=== PATIENT | female | born 1975 | race Caucasian/White ===

== ENCOUNTER 2021-10-07 18:56 | Inpatient (IN) | payer OTHER ==
[2021-10-07] MEDS ORDERED: LABETALOL 5 MG/ML VIAL MDV IVP PRN ×3 (19:39)
[2021-10-07] MEDS ORDERED: hydrALAZINE HCL 20 MG/ML 1 ML VIAL IVP PRN (19:39)
[2021-10-07] MEDS ORDERED: LACTATED RINGERS 1,000 ML IV SCH (19:40)
[2021-10-07 20:11] LABS: Basophils % (A) 0 %; Eosinophils # (A) 0.1 k/uL (0-0.7); Eosinophils % (A) 0 %; HCT 36.7 % (34.0-46.0); HGB 11.8 gm/dL (11.4-16.0); Hypochromasia Marked; Lymphocytes # (A) 2.4 k/uL (1.0-4.8); Lymphocytes % (A) 23 %; MCH 26.2 pg (25.0-35.0); MCHC 32.1 g/dL (31.0-37.0); MCV 81.5 fL (80.0-100.0); Mean Platelet Volume 13.8; Monocytes # (A) 0.3 k/uL (0-1.0); Monocytes % (A) 3 %; Neutrophils # (A) 7.7 k/uL (1.3-7.7); Neutrophils % (A) 72 %; Platelet Count 230 k/uL (150-450); Poikilocytosis Slight; RDW 14.2 % (11.5-15.5); WBC 10.7 k/uL (3.8-10.6)
[2021-10-07 20:24] LABS: Amphetamine Screen,Urine Not Detected (NotDetected); Barbiturate Screen,Urine Not Detected (NotDetected); Benzodiazepines Screen,Urine Not Detected (NotDetected); Cocaine Screen,Urine Not Detected (NotDetected); Methadone Screen, Urine Not Detected (NotDetected); Opiate Screen,Urine Not Detected (NotDetected); Oxycodone Screen, Urine Not Detected (NotDetected); Phencyclidine Screen,Urine Not Detected (NotDetected); Tricyclic Antidepressant,Urine Not Detected (NotDetected); Urn Cannabinoid Scrn Not Detected (NotDetected)
[2021-10-07 20:26] LABS: Amorphous Sediment,Urine Rare /hpf; Appearance,Urine Cloudy (Clear); Bacteria,Urine Rare /hpf; Bilirubin,Urine Negative (Negative); Blood,Urine Negative (Negative); Color,Urine Yellow; Glucose,Urine (UA) Negative (Negative); Hyaline Casts,Urine 14 /lpf (0-2); Ketones,Urine Trace (Negative); Leukocyte Esterase,Urine Moderate (Negative); Mucus,Urine Many /hpf; Nitrite,Urine Negative (Negative); Protein,Urine 1+ (Negative); RBC,Urine 2 /hpf (0-5); Squamous Epithelial Cell,Urine 10 /hpf (0-4); WBC,Urine 11 /hpf (0-5)
[2021-10-07 20:30] LABS: INR 0.9 (<1.2); Partial Thromboplastin Time 23.7 sec (22.0-30.0); Prothrombin Time 9.7 sec (9.0-12.0)
[2021-10-07 20:33] LABS: ALT 14 U/L (4-34); AST 19 U/L (14-36); African American GFR (CKD) >90 (>60 ml/min/1.73 sqM); Blood Urea Nitrogen 12 mg/dL (7-17); LDH 630 U/L (313-618); Non-African American GFR(CKD) >90 (>60 ml/min/1.73 sqM); Uric Acid 4.9 mg/dL (3.7-7.4)
[2021-10-07 20:34] LABS: Creatinine,Urine Random 320.4 mg/dL
[2021-10-07] MEDS ORDERED: CITRIC ACID-SODIUM CITRATE 15 ML CUP PO ONE (20:46)
[2021-10-07] MEDS ORDERED: diphenhydrAMINE 50 MG CAP PO PRN (21:42)
[2021-10-07] MEDS ORDERED: NALOXONE 0.4 MG/ML 1 ML VIAL IV PRN (21:42)
[2021-10-07] MEDS ORDERED: SIMETHICONE 80 MG CHEWABLE PO PRN (21:42)
[2021-10-07] MEDS ORDERED: diphenhydrAMINE 50 MG/ML 1 ML VIAL IVP PRN ×2 (21:42)
[2021-10-07] MEDS ORDERED: ZOLPIDEM 5 MG TAB PO PRN (21:42)
[2021-10-07] MEDS ORDERED: diphenhydrAMINE 25 MG CAP PO PRN (21:42)
[2021-10-07] MEDS ORDERED: ONDANSETRON 4 MG/2 ML VIAL IVP PRN (21:42)
[2021-10-07] MEDS ORDERED: OXYTOCIN 30 UNITS/500 ML NS 30 UNIT in SALINE 1 500ML.BAG IV SCH (21:45)
--- NOTE | 2021-10-07 21:48 | P.HPOB ---
History of Present Illness H&P Date: 10/07/21 Chief Complaint: pre-eclampsia 45 year old presents at 39 weeks and 5 days by last menstrual period with elevated blood pressures. Patient has had no care and decided to come to the [facility] because she knew she shouldn't go into labor considering she had a previous section. According to an Natalya She has on her phone she's 39 weeks and 5 days though she has not had any care including ultrasounds her blood work. Her exam does Antione out to 37-40 weeks. heart tones 135 with moderate variability and reactive. She is showing some contractions on the monitor but not feeling any. Her blood pressures here are very high up to 200s over 100s. Started labetalol protocol which did help with her blood pressures. She denies headache or vision changes or nausea. Review of Systems All systems: negative Constitutional: Denies chills, Denies fever Eyes: denies blurred vision, denies pain Ears, nose, mouth and throat: Denies headache, Denies sore throat Cardiovascular: Denies chest pain, Denies shortness of breath Respiratory: Denies cough Gastrointestinal: Denies abdominal pain, Denies diarrhea, Denies nausea, Denies vomiting Genitourinary: Denies dysuria, Denies hematuria Musculoskeletal: Denies myalgias Integumentary: Denies pruritus, Denies rash Neurological: Denies numbness, Denies weakness Psychiatric: Denies anxiety, Denies depression Endocrine: Denies fatigue, Denies weight change Past Medical History Additional Past Medical History / Comment(s): Obstetric history: One was a section 10 years ago, she pushed the baby up for adoption. She's had 2 miscarriages. Another she got to 6-7 months but then had a vaginal delivery of this baby. She says she did not get care with this because she was having insurance issues and then by the time she did get insurance was too late for any office to accept her for care. History of Any Multi-Drug Resistant Organisms: None Reported Smoking Status: Never smoker Medications and Allergies Home Medications Medication Instructions Recorded Confirmed Type Pnv No.95/Ferrous Fum/Folic AC 1 tab PO DAILY 10/07/21 10/07/21 History [ Multivitamin Tablet] Allergies Allergy/AdvReac Type Severity Reaction Status Date / Time codeine AdvReac Nausea & Verified 10/07/21 19:21 Vomiting Exam Osteopathic Statement: *. No significant issues noted on an osteopathic structural exam other than those noted in the History and Physical/Consult. Intake and Output 10/07/21 10/07/21 10/07/21 06:59 14:59 22:59 Other: Weight 111.629 kg Heart: Regular rate and rhythm Lungs: Clear to auscultation bilaterally Abdomen: Soft, nontender, gravid 37-40 weeks Extremities: Negative Homans sign, 2+ a 4 DTR Results Result Diagrams: 10/07/21 19:35 10/07/21 19:35 Abnormal Lab Results - Last 24 Hours (Table) 10/07/21 10/07/21 10/07/21 Range/Units 19:35 19:35 19:35 WBC 10.7 H (3.8-10.6) k/uL Fibrinogen 519 H (200-500) mg/dL Lactate Dehydrogenase (313-618) U/L Urine Appearance Cloudy H (Clear) Urine Protein 1+ H (Negative) Urine Ketones Trace H (Negative) Ur Leukocyte Esterase Moderate H (Negative) Urine WBC 11 H (0-5) /hpf Ur Squamous Epith Cells 10 H (0-4) /hpf Amorphous Sediment Rare H (None) /hpf Urine Bacteria Rare H (None) /hpf Hyaline Casts 14 H (0-2) /lpf Urine Mucus Many H (None) /hpf 10/07/21 Range/Units 19:35 WBC (3.8-10.6) k/uL Fibrinogen (200-500) mg/dL Lactate Dehydrogenase 630 H (313-618) U/L Urine Appearance (Clear) Urine Protein (Negative) Urine Ketones (Negative) Ur Leukocyte Esterase (Negative) Urine WBC (0-5) /hpf Ur Squamous Epith Cells (0-4) /hpf Amorphous Sediment (None) /hpf Urine Bacteria (None) /hpf Hyaline Casts (0-2) /lpf Urine Mucus (None) /hpf Assessment and Plan (1) Preeclampsia Current Visit: Yes Status: Acute Code(s): O14.90 - UNSPECIFIED PRE- ECLAMPSIA, UNSPECIFIED TRIMESTER SNOMED Code(s): 973598716 (2) No care in current Current Visit: Yes Status: Acute Code(s): O09.30 - SUPRVSN OF PREG W INSUFFICIENT ANTENAT CARE, UNSP TRIMESTER SNOMED Code(s): 328964274 (3) 39 weeks gestation of Current Visit: Yes Status: Acute Code(s): Z3A.39 - 39 WEEKS GESTATION OF SNOMED Code(s): 31075488 (4) Previous section Current Visit: Yes Status: Acute Code(s): Z98.891 - HISTORY OF UTERINE SCAR FROM PREVIOUS SURGERY SNOMED Code(s): 514553713 Plan: 1. Repeat low transverse
--- NOTE | 2021-10-07 21:51 | P.OP ---
Date of Procedure: 10/07/21 Preoperative Diagnosis: 1. at 39 weeks 5 days 2. previous 3. pre-eclampsia 4. no care with current Postoperative Diagnosis: 1. at 39 weeks 5 days 2. previous 3. pre-eclampsia 4. no care with current Procedure(s) Performed: repeat low transverse Anesthesia: spinal Surgeon: Joyce Carter Cnc Field Service Engineer #1: Maria Luz Adames Estimated Blood Loss (ml): 200 IV fluids (ml): 500 Urine output (ml): 50 Pathology: other (placenta) Condition: stable Disposition: floor Operative Findings: viable male. Apgars 8,8, weight pending Description of Procedure: Patient was taken to the operating room where spinal anesthesia was found be adequate. She was prepped and draped in normal sterile fashion in dorsal supine position with a leftward tilt. Pfannenstiel skin incision was made the scalpel and carried through to the underlying layer of fascia with the scalpel. Fascia was incised in midline and carried bilaterally with the Tabares scissors. The superior aspect of the fascial incision was grasped with [place] clamps elevated and the underlying rectus muscles dissected off with the Tabares's. Attention was then turned to inferior aspect of same incision which in a similar fashion was grasped tented up and the underlying rectus muscles dissected off with the Tabares's. The rectus muscles were the midline and the peritoneum was identified tented up and entered sharply with the scalpel. The incision was extended superiorly and inferiorly with good visualization of the bladder. The bladder blade was inserted and the vesicouterine peritoneum was incised the Metzenbaums then carried bilaterally and bladder flap created digitally. A low transverse incision was then made on the uterus with the scalpel. This was carried bilaterally and digital manner. 's head delivered atraumatically, nose and mouth bulb suctioned, cord clamped and cut, infant handed off to waiting nurses. Apgars 8,8, weight pending. Placenta delivered manually, intact with three-vessel cord. The uterus is exteriorized and cleared of all clots and debris. The uterine incision was closed with 0 Vicryl in a running locked fashion. Second layer of the same sutures used in imbricating fashion to obtain excellent hemostasis. Both ovaries and tubes appeared normal. The uterus was placed back into the abdomen. The peritoneum was reapproximated using 2-0 Vicryl in a running fashion. The fascia was reapproximated using 0 Vicryl in a running fashion. The subcutaneous tissues closed with 3-0 Vicryl running fashion. The skin was closed maria de jesus. Patient tolerated the procedure well, sponge and instrument counts were correct times 2 and she was taken to the recovery room in stable condition.
[2021-10-08] MEDS: METOCLOPRAMIDE 5 MG/ML 2 ML VIAL IVP PRN ×2 (01:11→07:39)
[2021-10-08] MEDS: LACTATED RINGERS 1,000 ML IV SCH ×5 (01:25→11:20)
[2021-10-08] MEDS: ACETAMINOPHEN TAB 500 MG TAB PO SCH ×3 (02:11→18:20)
[2021-10-08] MEDS: KETOROLAC 15 MG/ML 1 ML VIAL IVP SCH ×3 (05:00→22:17)
[2021-10-08] MEDS: SENNOSIDES-DOCUSATE SODIUM 1 EACH TAB PO SCH ×2 (07:39→20:32)
[2021-10-08 08:58] LABS: Basophils % (A) 0 %; Eosinophils % (A) 0 %; HCT 34.3 % (34.0-46.0); HGB 10.8 gm/dL (11.4-16.0); Hypochromasia Marked; Lymphocytes # (A) 1.9 k/uL (1.0-4.8); Lymphocytes % (A) 13 %; MCH 25.9 pg (25.0-35.0); MCHC 31.5 g/dL (31.0-37.0); MCV 82.4 fL (80.0-100.0); Mean Platelet Volume 13.7; Monocytes # (A) 0.4 k/uL (0-1.0); Monocytes % (A) 3 %; Neutrophils # (A) 11.9 k/uL (1.3-7.7); Neutrophils % (A) 83 %; Platelet Count 183 k/uL (150-450); RBC 4.17 m/uL (3.80-5.40); RDW 14.2 % (11.5-15.5); WBC 14.3 k/uL (3.8-10.6)
[2021-10-08 09:57] LABS: Hepatitis B Surface Antigen Nonreactive (Nonreactive)
[2021-10-08 10:19] LABS: Anisocytosis (M) Present; Poikilocytosis (M) Present
--- NOTE | 2021-10-08 11:22 | P.PNOBGPC ---
Subjective - Subjective Principal diagnosis: Status post repeat low transverse postop day #1 Interval history: Patient seen and examined. Denies nausea, vomiting, chest pain, shortness of breath or calf pain. She was very nauseous after the surgery last night and did have some nausea and vomiting throughout the night. Her urine output is pretty low only 50 out in the last 4 hours Minutes and is quite cloudy. We'll give 500 mL bolus of IV fluids since her blood pressures have been stable and she denies any shortness of breath. Patient reports: Reports appetite normal, Reports pain well controlled, Reports ambulating normally Objective - Vital Signs Latest vital signs: Vital Signs Temp Pulse Resp BP Pulse Ox 10/08/21 07:45 97.7 F 83 18 144/89 98 10/08/21 06:20 97.3 F L 89 14 135/84 99 10/08/21 03:30 79 18 153/87 98 10/07/21 23:58 95.1 F L 85 16 134/73 97 10/07/21 23:28 69 14 130/75 97 10/07/21 22:58 60 18 116/62 98 10/07/21 22:43 82 18 114/57 99 10/07/21 22:28 81 18 130/70 95 10/07/21 22:13 83 16 113/55 97 10/07/21 21:58 96.0 F L 86 16 127/65 94 L 10/07/21 20:40 97.7 F 96 18 217/106 10/07/21 19:20 97.7 F 96 16 217/106 Intake and Output 10/07/21 10/08/21 10/08/21 22:59 06:59 14:59 Output Total 420 572 220 Balance -420 -572 -220 Output: Urine 225 120 Uretheral (Price) 60 Emesis 200 100 Output, Quantitative 420 147 Blood Loss Other: Voiding Method Indwelling Catheter Indwelling Catheter Weight 111.629 kg - Exam Lungs: bilateral: normal Chest: Normal S1, Normal S2 Extremities: Present: normal Abdomen: Present: normal appearance, soft. Absent: distention, tenderness Incision: Present: normal, dry, intact Uterus: Present: normal, firm - Labs Labs: Abnormal Lab Results - Last 24 Hours (Table) 10/07/21 10/07/21 10/07/21 Range/Units 19:35 19:35 19:35 WBC 10.7 H (3.8-10.6) k/uL Hgb (11.4-16.0) gm/dL Neutrophils # (1.3-7.7) k/uL Fibrinogen 519 H (200-500) mg/dL Glucose (74-99) mg/dL Lactate Dehydrogenase (313-618) U/L Urine Appearance Cloudy H (Clear) Urine Protein 1+ H (Negative) Urine Ketones Trace H (Negative) Ur Leukocyte Esterase Moderate H (Negative) Urine WBC 11 H (0-5) /hpf Ur Squamous Epith Cells 10 H (0-4) /hpf Amorphous Sediment Rare H (None) /hpf Urine Bacteria Rare H (None) /hpf Hyaline Casts 14 H (0-2) /lpf Urine Mucus Many H (None) /hpf Rubella IgG Antibody (0.00-10.00) IU/mL 10/07/21 10/07/21 10/07/21 Range/Units 19:35 19:35 19:35 WBC (3.8-10.6) k/uL Hgb (11.4-16.0) gm/dL Neutrophils # (1.3-7.7) k/uL Fibrinogen (200-500) mg/dL Glucose 67 L (74-99) mg/dL Lactate Dehydrogenase 630 H (313-618) U/L Urine Appearance (Clear) Urine Protein (Negative) Urine Ketones (Negative) Ur Leukocyte Esterase (Negative) Urine WBC (0-5) /hpf Ur Squamous Epith Cells (0-4) /hpf Amorphous Sediment (None) /hpf Urine Bacteria (None) /hpf Hyaline Casts (0-2) /lpf Urine Mucus (None) /hpf Rubella IgG Antibody 21.20 H (0.00-10.00) IU/mL 10/08/21 Range/Units 07:44 WBC 14.3 H (3.8-10.6) k/uL Hgb 10.8 L (11.4-16.0) gm/dL Neutrophils # 11.9 H (1.3-7.7) k/uL Fibrinogen (200-500) mg/dL Glucose (74-99) mg/dL Lactate Dehydrogenase (313-618) U/L Urine Appearance (Clear) Urine Protein (Negative) Urine Ketones (Negative) Ur Leukocyte Esterase (Negative) Urine WBC (0-5) /hpf Ur Squamous Epith Cells (0-4) /hpf Amorphous Sediment (None) /hpf Urine Bacteria (None) /hpf Hyaline Casts (0-2) /lpf Urine Mucus (None) /hpf Rubella IgG Antibody (0.00-10.00) IU/mL Assessment and Plan (1) Preeclampsia Current Visit: Yes Status: Acute Code(s): O14.90 - UNSPECIFIED PRE- ECLAMPSIA, UNSPECIFIED TRIMESTER SNOMED Code(s): 192220970 (2) No care in current Current Visit: Yes Status: Acute Code(s): O09.30 - SUPRVSN OF PREG W INSUFFICIENT ANTENAT CARE, UNSP TRIMESTER SNOMED Code(s): 242425674 (3) 39 weeks gestation of Current Visit: Yes Status: Resolved Code(s): Z3A.39 - 39 WEEKS GESTATION OF SNOMED Code(s): 49198247 (4) Previous section Current Visit: Yes Status: Resolved Code(s): Z98.891 - HISTORY OF UTERINE SCAR FROM PREVIOUS SURGERY SNOMED Code(s): 036949657 (5) Status post repeat low transverse section Current Visit: Yes Status: Acute Code(s): Z98.891 - HISTORY OF UTERINE SCAR FROM PREVIOUS SURGERY SNOMED Code(s): 167139388 Plan: 1. Increase IV fluids 2. Monitor ins and outs closely 3. Pain control 4. Increase ambulation
[2021-10-08] MEDS ORDERED: FUROSEMIDE 10 MG/ML 2 ML VIAL IV ONE (17:00)
--- NOTE | 2021-10-08 21:29 | P.PN ---
Progress Note - Text 10/08/21 717am 45-year-old female status post with spinal Duramorph. Patient seen and evaluated this morning for postop pain control, patient has a VAS of 1 with complaints of nausea vomiting which is subsided. No complains of pruritus.
[2021-10-09] MEDS: ACETAMINOPHEN TAB 500 MG TAB PO SCH ×5 (00:16→20:03)
[2021-10-09] MEDS: KETOROLAC 15 MG/ML 1 ML VIAL IVP SCH (02:17)
--- NOTE | 2021-10-09 08:05 | P.PNOBGPC ---
Subjective - Subjective Principal diagnosis: S/P RLTCS POD #2 Interval history: Pt seen and examined. Denies N/V, F/C, CP, headache, vision changes, SOB or calf pain. Her output has improved but her BPs have also started to rise again. She has no pcp and was not seen with this so I am concerned for an underlying chronic HTN. I will get a cardiac consult. Patient reports: Reports appetite normal, Reports voiding normally, Reports pain well controlled, Reports ambulating normally : doing well Objective - Vital Signs Latest vital signs: Vital Signs Temp Pulse Resp BP Pulse Ox 10/08/21 23:40 98.0 F 87 18 141/87 98 10/08/21 20:30 98.2 F 91 16 144/86 98 10/08/21 15:23 98.3 F 79 18 124/81 97 10/08/21 11: 98.2 F 79 18 131/84 97 Intake and Output 10/08/21 10/09/21 10/09/21 22:59 06:59 14:59 Output Total 500 450 Balance -500 -450 Output: Urine 500 450 Other: # Voids 0 0 - Exam Lungs: bilateral: normal Chest: Normal S1, Normal S2 Extremities: Present: normal Abdomen: Present: normal appearance, soft. Absent: distention, tenderness Incision: Present: normal, dry, intact Uterus: Present: normal, firm - Labs Labs: Abnormal Lab Results - Last 24 Hours (Table) 10/07/21 10/08/21 Range/Units 19:35 07:44 WBC 14.3 H (3.8-10.6) k/uL Hgb 10.8 L (11.4-16.0) gm/dL Neutrophils # 11.9 H (1.3-7.7) k/uL Rubella IgG Antibody 21.20 H (0.00-10.00) IU/mL Assessment and Plan (1) Preeclampsia Current Visit: Yes Status: Acute Code(s): O14.90 - UNSPECIFIED PRE- ECLAMPSIA, UNSPECIFIED TRIMESTER SNOMED Code(s): 309085169 (2) No care in current Current Visit: Yes Status: Acute Code(s): O09.30 - SUPRVSN OF PREG W INSUFFICIENT ANTENAT CARE, UNSP TRIMESTER SNOMED Code(s): 544930578 (3) 39 weeks gestation of Current Visit: Yes Status: Resolved Code(s): Z3A.39 - 39 WEEKS GESTATION OF SNOMED Code(s): 86927017 (4) Previous section Current Visit: Yes Status: Resolved Code(s): Z98.891 - HISTORY OF UTERINE SCAR FROM PREVIOUS SURGERY SNOMED Code(s): 027529297 (5) Status post repeat low transverse section Current Visit: Yes Status: Acute Code(s): Z98.891 - HISTORY OF UTERINE SCAR FROM PREVIOUS SURGERY SNOMED Code(s): 154640492 Plan: 1. consult cardiology for possible chronic hypertension and BP meds 2. increase ambulation 3. po care
[2021-10-09] MEDS: SENNOSIDES-DOCUSATE SODIUM 1 EACH TAB PO SCH ×2 (08:21→20:03)
--- NOTE | 2021-10-09 10:06 | P.CRDCN ---
History of Present Illness History of present illness: HISTORY OF PRESENTING ILLNESS Patient is a pleasant 45-year-old female with history of new-onset hypertension with concern of preeclampsia, no medical follow-up and family history of congest agnes heart failure and hypertension. She admits she has not had any previous cardiac or medical care in the last 4 years. She had no care and came to the emergency department and was found to be 39 weeks per the Natalya she was using. She is not actually having any contractions however new that her prior delivery with and therefore should not have a vaginal . She was noted to be having some contractions and additionally blood pressure severely elevated at 217/106 and therefore labetalol was given with improvement down to the 120s. She denied any symptoms of headache, blurry vision, chest pain or shortness breath. Blood work showed white blood cell count 10.7, hemoglobin 11.8, fibrinogen 519, creatinine 0.6, LDH 630, glucose 67, urinalysis with 1+ protein however protein to creatinine ratio less than 1%. Given concern of preeclampsia patient was taken for and patient and baby had been doing well. She denies any chest pain or pressure. Denies any shortness breath. Blood pressures were somewhat better in the 120s to 130s systolics however have been labile and up to 170s this morning. She has only been receiving as needed pushes of labetalol and hydralazine. REVIEW OF SYSTEMS At the time of my exam: CONSTITUTIONAL: Denies fever or chills. CARDIOVASCULAR: Denies chest pain, shortness of breath, orthopnea, PND or palpitations. RESPIRATORY: Denies cough. GASTROINTESTINAL: Denies abdominal pain, diarrhea, constipation, nausea or vomi ting. MUSCULOSKELETAL: Denies myalgias. NEUROLOGIC: Denies numbness, tingling or weakness. ENDOCRINE: Denies fatigue, weight change, polydipsia or polyurina. GENITOURINARY: Denies burning, hematuria or urgency with micturation. HEMATOLOGIC: Denies history of anemia or bleeding. PHYSICAL EXAMINATION Vital signs reviewed. CONSTITUTIONAL: No apparent distress. HEENT: Head is normocephalic. Pupils are equal, round. Sclerae anicteric. Mucous membranes of the mouth are moist. No JVD. No carotid bruit. CHEST EXAMINATION: Lungs are clear to auscultation. No chest wall tenderness is noted on palpation or with deep breathing. HEART EXAMINATION: Regular rate and rhythm. S1, S2 heard. No murmurs, gallops or rub. ABDOMEN: Soft, nontender. Positive bowel sounds. EXTREMITIES: 2+ peripheral pulses, no lower extremity edema and no calf tenderness. NEUROLOGIC EXAMINATION: Patient is awake, alert and oriented x3. ASSESSMENT 1. Hypertension, initial concern of preeclampsia with severely elevated blood pressure and mild proteinuria status post delivery. Suspect some component of chronic hypertension with continued elevated blood pressures. 2. Proteinuria 3. Medical noncompliance/poor follow-up 4. Family history of hypertension/heart failure PLAN Initial presentation concern for preeclampsia with proteinuria noted. She has been doing well status post . She denies much pain or anxiety that could be exacerbating her elevated blood pressure readings. Given continued elevated blood pressure we will start labetalol and monitor response. Check EKG and echocardiogram for completeness. Further recommendations to follow. Past Medical History Past Medical History: No Reported History Additional Past Medical History / Comment(s): Obstetric history: One was a section 10 years ago, she pushed the baby up for adoption. She's had 2 miscarriages. Another she got to 6-7 months but then had a vaginal delivery of this baby. She says she did not get care with this because she was having insurance issues and then by the time she did get insurance was too late for any office to accept her for care. History of Any Multi-Drug Resistant Organisms: None Reported Past Surgical History: Section Past Anesthesia/Blood Transfusion Reactions: No Reported Reaction Smoking Status: Never smoker - Past Family History Father Family Medical History: Cancer, Hypertension Additional Family Medical History / Comment(s): Lung cancer Mother Family Medical History: Diabetes Mellitus Medications and Allergies Home Medications Medication Instructions Recorded Confirmed Type Pnv No.95/Ferrous Fum/Folic AC 1 tab PO DAILY 10/07/21 10/07/21 History [ Multivitamin Tablet] Allergies Allergy/AdvReac Type Severity Reaction Status Date / Time codeine AdvReac Nausea & Verified 10/07/21 19:21 Vomiting Physical Exam Vitals: Vital Signs Temp Pulse Resp BP Pulse Ox 10/09/21 08:28 170/98 10/09/21 08:05 98.4 F 89 18 174/98 97 10/08/21 23:40 98.0 F 87 18 141/87 98 10/08/21 20:30 98.2 F 91 16 144/86 98 10/08/21 15:23 98.3 F 79 18 124/81 97 10/08/21 11:22 98.2 F 79 18 131/84 97 Intake and Output 10/08/21 10/09/21 10/09/21 22:59 06:59 14:59 Output Total 500 450 200 Balance -500 -450 -200 Output: Urine 500 450 200 Other: # Voids 0 0 Results 10/08/21 07:44 10/07/21 19:35 Current Medications Generic Name Dose Route Start Last Admin Trade Name Freq PRN Reason Stop Dose Admin Acetaminophen 1,000 mg 10/08/21 00:45 10/09/21 08:21 Acetaminophen Tab 500 Mg Tab PO 1,000 mg Q6H YAYA Administration Diphenhydramine HCl 25 mg 10/07/21 21:42 Diphenhydramine 25 Mg Cap PO Q6HR PRN Mild Itching Diphenhydramine HCl 50 mg 10/07/21 21:42 Diphenhydramine 50 Mg Cap PO Q6HR PRN Moderate to Severe itching Hydralazine HCl 10 mg 10/07/21 19:39 Hydralazine Hcl 20 Mg/Ml 1 Ml Vial IVP 10/09/21 19:41 ONCE PRN Hypertension Ibuprofen 600 mg 10/09/21 07:52 Ibuprofen 600 Mg Tab PO Q6HR PRN Mild Pain Labetalol HCl 80 mg 10/07/21 19:39 Labetalol 5 Mg/Ml Vial Mdv IVP 10/09/21 19:41 ONCE PRN Hypertension Labetalol HCl 200 mg 10/09/21 10:00 Labetalol 200 Mg Tab PO BID YAYA Naloxone HCl 0.2 mg 10/07/21 21:42 Naloxone 0.4 Mg/Ml 1 Ml Vial IV Q2M PRN Opioid Reversal Senna/Docusate Sodium 2 each 10/08/21 08:00 10/09/21 08:21 Sennosides-Docusate Sodium 1 Each Tab PO 2 each BID@0800,2000 YAYA Administration Simethicone 80 mg 10/07/21 21:42 Simethicone 80 Mg Chewable PO PCHS PRN Indigestion Zolpidem Tartrate 5 mg 10/07/21 21:42 Zolpidem 5 Mg Tab PO HS PRN Insomnia Intake and Output 10/08/21 10/09/21 10/09/21 22:59 06:59 14:59 Output Total 500 450 200 Balance -500 -450 -200 Output: Urine 500 450 200 Other: # Voids 0 0 10/08/21 07:44 10/07/21 19:35
[2021-10-09] MEDS: LABETALOL 200 MG TAB PO SCH ×2 (10:07→20:03)
[2021-10-09 16:15] LABS: HIV 2 AB Non-Reactive (Non-Reactive); HIV AB P24 Non-Reactive (Non-Reactive); HIV P24 AG Non-Reactive (Non-Reactive)
[2021-10-10] MEDS: IBUPROFEN 600 MG TAB PO PRN ×3 (03:46→17:13)
[2021-10-10] MEDS: ACETAMINOPHEN TAB 500 MG TAB PO SCH ×4 (04:42→20:17)
[2021-10-10] MEDS: SENNOSIDES-DOCUSATE SODIUM 1 EACH TAB PO SCH ×2 (07:34→20:18)
[2021-10-10] MEDS: LABETALOL 200 MG TAB PO SCH ×2 (07:34→21:11)
[2021-10-10 12:10] LABS: C. trachomatis,PCR Negative (Neg,Equiv); Chlamydia trachomatis Source Urine; N. gonorrhoeae,PCR Negative (Neg,Equiv); Neisseria Source Urine
[2021-10-10 16:44] VITALS: RESP 18
--- NOTE | 2021-10-10 16:54 | P.PN ---
Subjective HISTORY OF PRESENTING ILLNESS Patient is a pleasant 45-year-old female with history of new-onset hypertension with concern of preeclampsia, no medical follow-up and family history of congestive heart failure and hypertension. She admits she has not had any previous cardiac or medical care in the last 4 years. She had no care and came to the emergency department and was found to be 39 weeks per the Natalya she was using. She is not actually having any contractions however new that her prior delivery with and therefore should not have a vaginal . She was noted to be having some contractions and additionally blood pressure severely elevated at 217/106 and therefore labetalol was given with improvement down to the 120s. She denied any symptoms of headache, blurry vision, chest pain or shortness breath. Blood work showed white blood cell count 10.7, hemoglobin 11.8, fibrinogen 519, creatinine 0.6, LDH 630, glucose 67, urinalysis with 1+ protein however protein to creatinine ratio less than 1%. Given concern of preeclampsia patient was taken for and patient and baby had been doing well. She denies any chest pain or pressure. Denies any shortness breath. Blood pressures were somewhat better in the 120s to 130s systolics however have been labile and up to 170s this morning. She has only been receiving as needed pushes of labetalol and hydralazine. 10/10 Patient seen and examined. Patient states she is feeling well. Denies any chest pain or pressure. No shortness of breath. Has been up moving around the room. Blood pressures mainly 140s up to higher in the 170s. She did receive labetalol yesterday with mild improvements in blood pressures noted. Echo has not been performed yet. PHYSICAL EXAMINATION Vital signs reviewed. CONSTITUTIONAL: No apparent distress. HEENT: Head is normocephalic. Pupils are equal, round. Sclerae anicteric. Mucous membranes of the mouth are moist. No JVD. No carotid bruit. CHEST EXAMINATION: Lungs are clear to auscultation. No chest wall tenderness is noted on palpation or with deep breathing. HEART EXAMINATION: Regular rate and rhythm. S1, S2 heard. No murmurs, gallops or rub. ABDOMEN: Soft, nontender. Positive bowel sounds. EXTREMITIES: 2+ peripheral pulses, no lower extremity edema and no calf tenderness. NEUROLOGIC EXAMINATION: Patient is awake, alert and oriented x3. ASSESSMENT 1. Hypertension, initial concern of preeclampsia with severely elevated blood pressure and mild proteinuria status post delivery. Suspect some component of chronic hypertension with continued elevated blood pressures. 2. Proteinuria 3. Medical noncompliance/poor follow-up 4. Family history of hypertension/heart failure PLAN Check 2-D echo. Continue labetalol 200 mg twice a day as well as nifedipine 30 mg daily. May need to increase antihypertensive medications however we will start somewhat slower to avoid traumatic changes in blood pressure. Hopefully if blood pressures better controlled discharge home tomorrow. Objective - Vital Signs Vital signs: Vital Signs Temp 98.6 F 10/10/21 15:02 Pulse 98 10/10/21 16:00 Resp 18 10/10/21 16:00 BP 178/100 10/10/21 16:00 Pulse Ox 98 10/10/21 16:00 Intake & Output 10/09/21 10/10/21 10/10/21 18:59 06:59 18:59 Output Total 200 Balance -200 Output: Urine 200 - Labs CBC & Chem 7: 10/08/21 07:44 10/07/21 19:35
[2021-10-10] MEDS ORDERED: NIFEdipine XL 30 MG TAB.ER.24 PO SCH (17:15)
[2021-10-10] MEDS ORDERED: NIFEdipine XL 30 MG TAB.ER.24 PO STA (22:20)
[2021-10-11] MEDS: ACETAMINOPHEN TAB 500 MG TAB PO SCH ×3 (01:23→14:56)
[2021-10-11 07:34] VITALS: TEMP 98.1
[2021-10-11] MEDS: SENNOSIDES-DOCUSATE SODIUM 1 EACH TAB PO SCH (07:43)
[2021-10-11] MEDS: IBUPROFEN 600 MG TAB PO PRN (08:08)
[2021-10-11] MEDS: LABETALOL 200 MG TAB PO SCH (08:08)
--- NOTE | 2021-10-11 08:35 | P.PNOBGPC ---
Subjective - Subjective Principal diagnosis: S/P RLTCS POD #3 Interval history: Patient Seen and examined. Denies nausea, vomiting, chest pain, shortness of breath or any calf pain. Her blood pressures are still rather high though she was put on labetalol 200 mg twice daily by cardiology. Patient reports: Reports appetite normal, Reports voiding normally, Reports pain well controlled, Reports ambulating normally Objective - Vital Signs Latest vital signs: Vital Signs Temp Pulse Resp BP BP Pulse Ox 10/11/21 07:32 98.1 F 88 18 166/102 96 10/11/21 01:22 156/92 10/10/21 23:43 91 18 10/10/21 23:42 97.8 F 91 18 138/86 97 10/10/21 18:56 93 18 169/97 10/10/21 16:00 98 18 178/100 98 10/10/21 15:02 98.6 F 96 16 175/95 97 10/10/21 14:54 98.6 F 96 175/97 97 10/10/21 10:22 148/92 10/10/21 09:04 162/95 Intake and Output 10/10/21 10/11/21 10/11/21 22:59 06:59 14:59 Other: Voiding Method Toilet # Voids 1 - Exam Lungs: bilateral: normal Chest: Normal S1, Normal S2 Extremities: Present: normal Abdomen: Present: normal appearance, soft. Absent: distention, tenderness Incision: Present: normal, dry, intact Uterus: Present: normal, firm Assessment and Plan (1) Preeclampsia Current Visit: Yes Status: Acute Code(s): O14.90 - UNSPECIFIED PRE- ECLAMPSIA, UNSPECIFIED TRIMESTER SNOMED Code(s): 604462773 (2) No care in current Current Visit: Yes Status: Acute Code(s): O09.30 - SUPRVSN OF PREG W INSUFFICIENT ANTENAT CARE, UNSP TRIMESTER SNOMED Code(s): 962910384 (3) 39 weeks gestation of Current Visit: Yes Status: Resolved Code(s): Z3A.39 - 39 WEEKS GESTATION OF SNOMED Code(s): 73401843 (4) Previous section Current Visit: Yes Status: Resolved Code(s): Z98.891 - HISTORY OF UTERINE SCAR FROM PREVIOUS SURGERY SNOMED Code(s): 826839185 (5) Status post repeat low transverse section Current Visit: Yes Status: Acute Code(s): Z98.891 - HISTORY OF UTERINE SCAR FROM PREVIOUS SURGERY SNOMED Code(s): 603093602 Plan: 1. Cardiology recs 2. Increase ambulation 3. Continue postoperative care
--- NOTE | 2021-10-11 08:37 | P.PNOBGPC ---
Subjective - Subjective Principal diagnosis: Status post repeat low transverse postop day #4 Interval history: Patient seen and examined. Cardiology did not see the patient until evening yesterday 0 blood pressures were quite high all day. They added 30 of Procardia but that was not an option. At 30 more. She will take 60 mg of Procardia this morning so as well as the labetalol 200 twice a day. Patient reports: Reports appetite normal, Reports voiding normally, Reports pain well controlled, Reports ambulating normally Objective - Vital Signs Latest vital signs: Vital Signs Temp Pulse Resp BP BP Pulse Ox 10/11/21 07:32 98.1 F 88 18 166/102 96 10/11/21 01:22 156/92 10/10/21 23:43 91 18 10/10/21 23:42 97.8 F 91 18 138/86 97 10/10/21 18:56 93 18 169/97 10/10/21 16:00 98 18 178/100 98 10/10/21 15:02 98.6 F 96 16 175/95 97 10/10/21 14:54 98.6 F 96 175/97 97 10/10/21 10:22 148/92 10/10/21 09:04 162/95 Intake and Output 10/10/21 10/11/21 10/11/21 22:59 06:59 14:59 Other: Voiding Method Toilet # Voids 1 - Exam Lungs: bilateral: normal Chest: Normal S1, Normal S2 Extremities: Present: normal Abdomen: Present: normal appearance, soft. Absent: distention, tenderness Incision: Present: normal, dry, intact Uterus: Present: normal, firm Assessment and Plan (1) Preeclampsia Current Visit: Yes Status: Acute Code(s): O14.90 - UNSPECIFIED PRE- ECLAMPSIA, UNSPECIFIED TRIMESTER SNOMED Code(s): 722733201 (2) No care in current Current Visit: Yes Status: Acute Code(s): O09.30 - SUPRVSN OF PREG W INSUFFICIENT ANTENAT CARE, UNSP TRIMESTER SNOMED Code(s): 368373007 (3) 39 weeks gestation of Current Visit: Yes Status: Resolved Code(s): Z3A.39 - 39 WEEKS GESTATION OF SNOMED Code(s): 36213047 (4) Previous section Current Visit: Yes Status: Resolved Code(s): Z98.891 - HISTORY OF UTERINE SCAR FROM PREVIOUS SURGERY SNOMED Code(s): 982031352 (5) Status post repeat low transverse section Current Visit: Yes Status: Acute Code(s): Z98.891 - HISTORY OF UTERINE SCAR FROM PREVIOUS SURGERY SNOMED Code(s): 843260379 Plan: 1. Continue hypertensive medications 2. Will discharge her blood pressures are controlled, notes reviewed from cardiology
--- NOTE | 2021-10-11 09:48 | ECHOF ---
Referral Reason:re: HTN MEASUREMENTS -------- HEIGHT: 162.6 cm WEIGHT: 111.6 kg BP: IVSd: 1.0 cm (0.6 - 1.1) LVIDd: 4.0 cm (3.9 - 5.3) LVPWd: 1.1 cm (0.6 - 1.1) IVSs: 1.8 cm LVIDs: 1.9 cm LVPWs: 1.7 cm Ao Diam: 2.8 cm (2.0 - 3.7) AV Cusp: 1.7 cm (1.5 - 2.6) LA Diam: 2.8 cm (2.7 - 3.8) MV EXCURSION: 18.395 mm (> 18.000) MV EF SLOPE: 91 mm/s (70 - 150) EPSS: 0.5 cm MV E Renzo: 1.00 m/s MV DecT: 106 ms MV A Renzo: 0.84 m/s MV E/A Ratio: 1.19 AR PHT: 247 ms RAP: 5.00 mmHg RVSP: 23.37 mmHg FINDINGS -------- This was a technically adequate study. The left ventricular size is normal. Left ventricular wall thickness is normal. Overall left vent ricular systolic function is normal with, an EF between 60 - 65 %. The diastolic filling pattern is normal for the age of the patient 13.52. The right ventricle is normal in size. The left atrial size is normal. Normal LA size by volume 22+/-6 ml/m2. The right atrial size is normal. The aortic valve is trileaflet and appears structurally normal. Trace amount of aortic regurgitatio n. The mitral valve is normal. Mild mitral regurgitation is present. The tricuspid valve appears structurally normal. Trace tricuspid regurgitation present. Right helene tricular systolic pressure is normal at < 35 mmHg. There is no pulmonic regurgitation present. The aortic root size is normal. IVC Not well visulized. There is no pericardial effusion. CONCLUSIONS -------- 1. The left ventricular size is normal. 2. Left ventricular wall thickness is normal. 3. Overall left ventricular systolic function is normal with, an EF between 60 - 65 %. 4. The diastolic filling pattern is normal for the age of the patient 13.52 5. Trace amount of aortic regurgitation. 6. Mild mitral regurgitation is present. 7. Trace tricuspid regurgitation present. 8. There is no pericardial effusion. PUBLIC HEALTH CLINICAL NURSE SPECIALIST: Tasha Pedro RDCS
--- NOTE | 2021-10-11 10:37 | P.PN ---
Subjective Progress Note Date: 10/11/21 HISTORY OF PRESENT ILLNESS: Patient is a pleasant 45-year-old female with history of new-onset hypertension with concern of preeclampsia, no medical follow-up and family history of congestive heart failure and hypertension. She admits she has not had any previous cardiac or medical care in the last 4 years. She had no care and came to the emergency department and was found to be 39 weeks per the Natalya she was using. She is not actually having any contractions however new that her prior delivery with and therefore should not have a vaginal . She was noted to be having some contractions and additionally blood pressure severely elevated at 217/106 and therefore labetalol was given with improvement down to the 120s. She denied any symptoms of headache, blurry vision, chest pain or shortness breath. Blood work showed white blood cell cou nt 10.7, hemoglobin 11.8, fibrinogen 519, creatinine 0.6, LDH 630, glucose 67, urinalysis with 1+ protein however protein to creatinine ratio less than 1%. Given concern of preeclampsia patient was taken for and patient and baby had been doing well. She denies any chest pain or pressure. Denies any shortness breath. Blood pressures were somewhat better in the 120s to 130s systolics however have been labile and up to 170s this morning. She has only been receiving as needed pushes of labetalol and hydralazine. 10/10 Patient seen and examined. Patient states she is feeling well. Denies any chest pain or pressure. No shortness of breath. Has been up moving around the room. Blood pressures mainly 140s up to higher in the 170s. She did receive labetalol yesterday with mild improvements in blood pressures noted. Echo has not been performed yet. 10/11/2021 Patient examined this morning at the bedside. Patient denies chest pain or pressure. Denies shortness of breath. Echocardiogram completed revealing ejection fraction 6065%, trace aortic regurgitation, mild mitral regurgitation, trace tricuspid regurgitation. Patient's blood pressures have improved with a recent reading of 143/88. PHYSICAL EXAM: VITAL SIGNS: Reviewed. GENERAL: Well-developed in no acute distress. NECK: Supple. No JVD or thyromegaly LUNGS: Respirations even and unlabored. Lungs essentially clear to auscultation bilaterally. HEART: Regular rate and rhythm. S1 and S2 heard. EXTREMITIES: Normal range of motion. No clubbing or cyanosis. Peripheral pulses intact. No lower extremity edema ASSESSMENT: 1. Hypertension, initial concern of preeclampsia with severely elevated blood pressure and mild proteinuria status post delivery. Suspect some component of chronic hypertension with continued elevated blood pressures. 2. Proteinuria 3. Medical noncompliance/poor follow-up 4. Family history of hypertension/heart failure PLAN: Continue current cardiac medications Patient may be discharged home today from a cardiac standpoint She is to follow up with Dr. Banks in 1 week Nurse practitioner note has been reviewed by physician. Signing provider agrees with the documented findings, assessment, and plan of care. Objective - Vital Signs Vital signs: Vital Signs Temp 98.1 F 10/11/21 07:32 Pulse 87 10/11/21 08:56 Resp 18 10/11/21 07:32 BP 143/88 10/11/21 08:56 Pulse Ox 96 10/11/21 07:32 Intake & Output 10/10/21 10/11/21 10/11/21 18:59 06:59 18:59 Other: Voiding Method Toilet # Voids 1 - Labs CBC & Chem 7: 10/08/21 07:44 10/07/21 19:35
[2021-10-11 15:23] VITALS: BP 147/89; PULSE 108
== END 2021-10-11 16:41 | disposition home or self-care (01) | DRG 788 ==
LOC: FBPOP 18:56 → 4FBP 20:37
PROVIDERS: ADMIT Obstetrics & Gynecology; ATTEND Obstetrics & Gynecology
PROC: 10D00Z1 Extraction of Products of Conception, Low, Open Approach (ICD-10-PCS; principal; 2021-10-07 21:00)
DX: O14.94 Unspecified pre-eclampsia, complicating childbirth (principal); O15.1 Eclampsia complicating labor; O34.211 Maternal care for low transverse scar from previous cesarean delivery; Z37.0 Single live birth; Z3A.39 39 weeks gestation of pregnancy; Z91.19 Patient's noncompliance with other medical treatment and regimen; O09.33 Supervision of pregnancy with insufficient antenatal care, third trimester; Z82.49 Family history of ischemic heart disease and other diseases of the circulatory system
CPT/HCPCS: 36415; 59025; 80306; 81001; 82565; 82570; 82947; 83615; 84156; 84450; 84460; 84520; 84550; 85025; 85384; 85610; 85730; 86762; 86780; 86850; 86900; 86901; 87340; 87390; 87491; 87591; 88307; 93306; 96361; 96374; 99215